=== PATIENT | female | born 1980 | race Hispanic/Latino ===

== ENCOUNTER 2018-05-08 10:38 | Observation (INO) | payer OTHER ==
[2018-05-07] MEDS: CEFTRIAXONE SOD 1 GM/NS 50 ML 50 ML IV SCH (22:15)
[~2018-05-08] VITALS: Ht 165.1 cm; Wt 100.7 kg
--- OUTSIDE RECORDS SUMMARY | 2018-05-08 10:41 | XMS REPORT ---
Author Author [facility] Address Unknown Phone Unavailable Care Team Providers Care Tile Trimmer Name Role Phone LAKE JUNG Unavailable Unavailable Problems This patient has no known problems. Allergies, Adverse Reactions, Alerts This patient has no known allergies or adverse reactions. Medications This patient has no known medications. Results Test Description Test Time Test Comments Text Results Atomic Results Result Comments U/S, ABDOMINAL, LIMITED 2017-11-06 14:51:00 Abdomen limited area? Add comment if clarification is needed.->Right upper quadrantReason for exam:->CHEST PAINpatient c/o mid chest wall and upper abdominal pain Reason for exam:->RUQ pain, cholelithiasis FINAL REPORT TECHNIQUE: Grayscale ultrasound of the right abdomen. INDICATION: 36-year-old woman with right upper quadrant pain. COMPARISON: None. FINDINGS: MIDLINE VASCULATURE: The visualized inferior vena cava is patent. Portal vein is patent. The maximum visualized aortic diameter is 1.9 cm. LIVER: The liver is normal in size. Increased echogenicity of the liver, consistent with hepatic steatosis. No focal lesions. BILIARY:Gallbladder: Shadowing cholelithiasis. No gallbladder wall thickening, pericholecystic fluid, or distention.Common bile duct measures 0.3 cm, within n ormal limits. No intrahepatic biliary ductal dilatation. PANCREAS: Visualized portions of the pancreas are unremarkable. PERITONEUM: No free fluid. RIGHT KIDNEY: Normal in size. No hydronephrosis. No sonographically evident solid mass lesion. IMPRESSION:Cholelithiasis without specific evidence of acute cholecystitis. Hepatic steatosis. Signed: Cassie Burns Verified Date/Time: 11/06/2017 14:51:14 Reading Location: [facility] Diagnostic Imaging Reading Room - [place] [address] TIC FUNCTION PANEL 2017-11-06 13:33:00 TOTAL PROTEIN (BEAKER) (test injl=366) 7.4 gm/dL 6.0-8.5 ALBUMIN (BEAKER) (test rylz=1803) 3.6 g/dL 3.5-5.0 BILIRUBIN TOTAL (BEAKER) (test phjm=898) 1.5 mg/dL 0.1-1.2 BILIRUBIN DIRECT (BEAKER) (test ncxr=287) 0.4 mg/dL 0.0-0.4 ALKALINE PHOSPHATASE (BEAKER) (test infz=610) 81 U/L 30-115 AST (SGOT) (BEAKER) (test pxby=207) 44 U/L 5-40 ALT (SGPT) (BEAKER) (test ujre=900) 34 U/L 5-50 [id number] 13:33:00* Test Item Value Reference Range Comments LIPASE (BEAKER) (test tpat=162) 84 U/L 40-240 BASIC METABOLIC [id number] 13:33:00* Test Item Value Reference Range Comments SODIUM (BEAKER) (test jtwi=421) 140 meq/L 135-148 POTASSIUM (BEAKER) (test harm=721) 3.8 meq/L 3.6-5.5 CHLORIDE (BEAKER) (test axev=215) 106 meq/L 98-106 CO2 (BEAKER) (test geeh=294) 27 meq/L 24-32 BLOOD UREA NITROGEN (BEAKER) (test hwvs=074) 10 mg/dL 10-26 CREATININE (BEAKER) (test iygc=104) 0.70 mg/dL 0.50-1.20 GLUCOSE RANDOM (BEAKER) (test bisw=000) 102 mg/dL 70-110 CALCIUM (BEAKER) (test plty=410) 8.6 mg/dL 8.5-10.5 EGFR (BEAKER) (test zmdd=7870) mL/min/1.73 sq m INSUFFICIENT CLINICAL DATA TO CALCULATE ESTIMATED GFR. CBC W/PLT COUNT & AUTO [id number] 13:28:00* Test Item Value Reference Range Comments WHITE BLOOD CELL COUNT (BEAKER) (test xled=636) 11.7 10e3/i? L 4.0-10.0 RED BLOOD CELL COUNT (BEAKER) (test ueey=263) 4.79 10e6/i? L 4.00-5.00 HEMOGLOBIN (BEAKER) (test oubl=495) 14.3 g/dL 12.0-15.0 HEMATOCRIT (BEAKER) (test wlac=709) 41.8 % 36.0-45.0 MEAN CORPUSCULAR VOLUME (BEAKER) (test btsj=636) 87.3 fL 82.0-99.0 MEAN CORPUSCULAR HEMOGLOBIN (BEAKER) (test jqsx=919) 29.7 pg 27.0-33.0 MEAN CORPUSCULAR HEMOGLOBIN CONC (BEAKER) (test czuo=284) 34.1 g/dL 32.0-36.0 RED CELL DISTRIBUTION WIDTH (BEAKER) (test gulr=487) 13.8 % 10.3-14.2 PLATELET COUNT (BEAKER) (test dmls=169) 308 10e3/i? L 150-430 MEAN PLATELET VOLUME (BEAKER) (test mblx=765) 8.5 fL 6.5-10.5 NEUTROPHILS RELATIVE PERCENT (BEAKER) (test qzts=479) 71 % LYMPHOCYTES RELATIVE PERCENT (BEAKER) (test pjpr=804) 18 % MONOCYTES RELATIVE PERCENT (BEAKER) (test khyw=080) 6 % EOSINOPHILS RELATIVE PERCENT (BEAKER) (test devp=618) 3 % BASOPHILS RELATIVE PERCENT (BEAKER) (test lwib=120) 1 % NEUTROPHILS ABSOLUTE COUNT (BEAKER) (test ltuk=633) 8.31 10e3/i? L 1.80-8.00 LYMPHOCYTES ABSOLUTE COUNT (BEAKER) (test pbcd=752) 2.15 10e3/i? L 1.48-4.50 MONOCYTES ABSOLUTE COUNT (BEAKER) (test kjam=608) 0.72 10e3/i? L 0.00-1.30 EOSINOPHILS ABSOLUTE COUNT (BEAKER) (test bggo=670) 0.37 10e3/i? L 0.00-0.50 BASOPHILS ABSOLUTE COUNT (BEAKER) (test esvd=299) 0.13 10e3/i? L 0.00-0.20
--- OUTSIDE RECORDS SUMMARY | 2018-05-08 10:41 | XMS REPORT | Clinical Summary ---
Author Author [facility] Address Unknown Phone Unavailable Care Team Providers Care Wine Pasteurizer Name Role Phone Pcp, No PCP Unavailable Allergies No Known Allergies Medications End Date Status Medication Sig Dispensed Refills Start Date Active lisinopril Take 20 mg by 0 (PRINIVIL,ZESTRIL) 20 MG mouth 2 (two) tablet times daily. 11/06/2018 Active dicyclomine (BENTYL) 20 Take 1 tablet 20 tablet 0 mg tablet (20 mg total) 8 by mouth 2 (two) times daily. 11/13/2017 ondansetron (ZOFRAN-ODT) Take 1 tablet 20 tablet 0 4 MG disintegrating (4 mg total) 8 tablet by mouth every 8 (eight) hours as needed for Nausea for up to 7 days. Active Problems Not on file Encounters Care Team Description Date Type Specialty Lake Jung MD Acute chest pain (Primary Dx); Nausea; RUQ abdominal pain; Calculus of gallbladder without cholecystitis without obstruction 11/06/2017 Emergency Emergency Medicine 11/06/2017 Orders Only General Internal Medicine after 05/07/2017 Social History Date Tobacco Use Types Packs/Day Years Used Never Smoker Smokeless Tobacco: Never Used Alcohol Use Drinks/Week oz/Week Comments Yes social Sex Assigned at Date Recorded Not on file Industry Job Start Date Occupation Not on file Not on file Not on file Travel End Travel History Travel Start No recent travel history available. Last Filed Vital Signs Time Taken Vital Sign Reading 11/06/2017 2:33 PM CDT Blood Pressure 149/89 11/06/2017 2:33 PM CDT Pulse 76 11/06/2017 12:36 PM CDT Temperature 36.7 C (98.1 F) 11/06/2017 2:33 PM CDT Respiratory Rate 16 11/06/2017 2:33 PM CDT Oxygen Saturation 99% - Inhaled Oxygen - Concentration 11/06/2017 12:36 PM CDT Weight 100.2 kg (221 lb) 11/06/2017 12:36 PM CDT Height 162.6 cm (5' 4") 11/06/2017 12:36 PM CDT Body Mass Index 37.93 Plan of Treatment Not on file Procedures Comments Procedure Name Priority Date/Time Associated Diagnosis ED ECG INTERPRETATION Routine 11/09/2017 4:38 PM CDT WI FAST ULTRASOUND - Routine 11/09/2017 LIMITED ABDOMINAL 4:38 PM CDT US ABDOMEN LIMITED STAT 11/06/2017 2:25 PM CDT CBC W/PLT COUNT & AUTO STAT 11/06/2017 DIFFERENTIAL 1:15 PM CDT LIPASE STAT 11/06/2017 1:15 PM CDT HEPATIC FUNCTION PANEL STAT 11/06/2017 1:15 PM CDT BASIC METABOLIC PANEL (7) STAT 11/06/2017 1:15 PM CDT CBC W/PLT COUNT & AUTO STAT 11/06/2017 DIFFERENTIAL 1:15 PM CDT ECG 12-LEAD Routine 11/06/2017 12:30 PM CDT after 05/07/2017 Results * ED ABDOMINAL ULTRASOUND (11/09/2017 4:38 PM CDT) Narrative Performed At Lake Jung MD 11/09/20174:38 PM Abd US Date/Time: 11/06/2017 12:40 PM Performed by: LAKE JUNG Authorized by: LAKE JUNG Consent: Verbal consent obtained. Risks and benefits: risks, benefits and alternatives were discussed Consent given by: patient Patient understanding: patient states understanding of the procedure being performed Patient identity confirmed: verbally with patient Time out: Immediately prior to procedure a "time out" was called to verify the correct patient, procedure, equipment, support specialist and site/side marked as required. Preparation: Patient was prepped and draped in the usual sterile fashion. Local anesthesia used: no Anesthesia: Local anesthesia used: no Sedation: Patient sedated: no Patient tolerance: Patient tolerated the procedure well with no immediate complications Immediate Post-Procedure Note Date/Time: 11/06/2017 4:37 PM Assistants to the procedure: None Pre-procedure diagnosis: RUq pain Post-procedure diagnosis: cholelithiasis Procedures Performed: Abd US Specimens removed: None Estimated blood loss (mL): None Complications: None Type of anesthesia: None Grafts or Implants: None Examiner:Attending Examiner attestation: I personally performed the procedure myself Indications:Abdominal pain Scope: limited--single quadrant or single abdominal organ Impression - Gallbladder:Gallstones, non obstructive, normal gallbladder wall, no mass and normal CBD Procedure Notes:Confirmatory study to be done in ED and images attached to the medical record * ED ECG Interpretation (11/09/2017 4:38 PM CDT) Narrative Performed At Lake Jung MD 11/09/20174:38 PM ECG/EKG Interpretation Date/Time: 11/06/2017 12:30 PM Performed by: LAKE JUNG Authorized by: LAKE JUNG The ECG was interpreted by ED physician. This ECG was not compared with previous ECG(s).There was no previous ECG available for comparison. The ECG is interpreted as sinus rhythm. Rate is normal rate. Heart rate is 88 BPM. Conduction: conduction normal. ST segments normal. T waves normal. [place] is normal. Other findings: no other findings. Clinical Impression: normal ECGECG reviewed and does not meet STEMI criteria. Patient tolerance: Patient tolerated the procedure well with no immediate complications * US abdomen limited (11/06/2017 2:25 PM CDT) Narrative Performed At FINAL REPORT [facility] TECHNIQUE: Grayscale ultrasound of the right abdomen. INDICATION: 36-year-old woman with right upper quadrant pain. COMPARISON: None. FINDINGS: MIDLINE VASCULATURE: The visualized inferior vena cava is patent. Portal vein is patent. The maximum visualized aortic diameter is 1.9 cm. LIVER: The liver is normal in size. Increased echogenicity of the liver, consistent with hepatic steatosis. No focal lesions. BILIARY: Gallbladder: Shadowing cholelithiasis. No gallbladder wall thickening, pericholecystic fluid, or distention. Common bile duct measures 0.3 cm, within normal limits. No intrahepatic biliary ductal dilatation. PANCREAS: Visualized portions of the pancreas are unremarkable. PERITONEUM: No free fluid. RIGHT KIDNEY: Normal in size. No hydronephrosis. No sonographically evident solid mass lesion. IMPRESSION: Cholelithiasis without specific evidence of acute cholecystitis. Hepatic steatosis. Signed: Mitzy Burns MD Report Verified Date/Time:11/06/2017 14:51:14 Reading Location: [facility] Diagnostic Imaging Reading Room - [place] [address] Procedure Note Interface, External Ris In - 11/06/2017 2:53 PM CDT FINAL REPORT TECHNIQUE: Grayscale ultrasound of the right abdomen. INDICATION: 36-year-old woman with right upper quadrant pain. COMPARISON: None. FINDINGS: MIDLINE VASCULATURE: The visualized inferior vena cava is patent. Portal vein is patent. The maximum visualized aortic diameter is 1.9 cm. LIVER: The liver is normal in size. Increased echogenicity of the liver, consistent with hepatic steatosis. No focal lesions. BILIARY: Gallbladder: Shadowing cholelithiasis. No gallbladder wall thickening, pericholecystic fluid, or distention. Common bile duct measures 0.3 cm, within normal limits. No intrahepatic biliary ductal dilatation. PANCREAS: Visualized portions of the pancreas are unremarkable. PERITONEUM: No free fluid. RIGHT KIDNEY: Normal in size. No hydronephrosis. No sonographically evident solid mass lesion. IMPRESSION: Cholelithiasis without specific evidence of acute cholecystitis. Hepatic steatosis. Signed: Mitzy Burns MD Report Verified Date/Time: 11/06/2017 14:51:14 Reading Location: [facility] Diagnostic Imaging Reading Room - [place] [address] Performing Organization Address City/State/Zipcode Phone Number RIS * CBC with platelet count + automated diff (11/06/2017 1:15 PM CDT) WBC 11.7 (H) 4.0 - 10.0 10e3/L [facility], [facility] [place], [place] [facility] RBC 4.79 4.00 - 5.00 10e6/L [facility], [facility] [place] Hemoglobin 14.3 12.0 - 15.0 g/dL [facility] [place] Hematocrit 41.8 36.0 - 45.0 % [facility] [place] MCV 87.3 82.0 - 99.0 fL [facility] [place] MCH 29.7 27.0 - 33.0 pg [facility] [place] MCHC 34.1 32.0 - 36.0 g/dL [facility] RDW 13.8 10.3 - 14.2 % [facility] [place] Platelets 308 150 - 430 10e3/L [facility] MPV 8.5 6.5 - 10.5 fL [facility] [place] % Neutros 71 % [facility] [place] % Lymphs 18 % [facility] [place] % Monos 6 % [facility] [place] % Eos 3 % [facility] [place] % Baso 1 % [facility] [place] # Neutros 8.31 (H) 1.80 - 8.00 10e3/L [facility] [place] # Lymphs 2.15 1.48 - 4.50 10e3/L [facility] [place] # Monos 0.72 0.00 - 1.30 10e3/L [facility] # Eos 0.37 0.00 - 0.50 10e3/L [facility], [facility] [place] # Baso 0.13 0.00 - 0.20 10e3/L [facility] [place] Specimen Blood - Arm, Left Performing Organization Address [facility]/[place] Phone Number [address] [phone] [facility], [facility] [place] * Lipase (11/06/2017 1:15 PM CDT) Lipase 84 40 - 240 U/L [facility], [place] Specimen Blood - Arm, Left Performing Organization Address [facility] Phone Number [address] [address] [phone] [place] [address] [facility] [place] * Hepatic function panel (11/06/2017 1:15 PM CDT) Protein, Total 7.4 6.0 - 8.5 gm/dL [facility], [facility] [place] Albumin 3.6 3.5 - 5.0 g/dL [facility] [place] Total Bilirubin 1.5 (H) 0.1 - 1.2 mg/dL [facility] [place] Bilirubin, Direct 0.4 0.0 - 0.4 mg/dL [facility], [facility] [place] Alkaline Phosphatase 81 30 - 115 U/L [facility], [facility], [facility] AST 44 (H) 5 - 40 U/L [facility] ALT 34 5 - 50 U/L [facility], [facility] [place] Specimen Blood - Arm, Left Performing Organization Address [facility]/[place] Phone Number [facility] [address] [place], [place] [phone] [facility], [facility] * Basic metabolic panel (Na, K+, Cl, CO2, Glu, Ca, BUN, Cr) (11/06/2017 1:15 PM CDT) Sodium 140 135 - 148 meq/L [facility], [facility], [facility] Potassium 3.8 3.6 - 5.5 meq/L [facility], [facility], [facility] Chloride 106 98 - 106 meq/L [facility] CO2 27 24 - 32 meq/L [facility] BUN 10 10 - 26 mg/dL [facility] Creatinine 0.70 0.50 - 1.20 mg/dL [facility], [facility], [facility] Glucose 102 70 - 110 mg/dL [facility] Calcium 8.6 8.5 - 10.5 mg/dL [facility], [facility] [place] EGFR Comment: INSUFFICIENT CLINICAL mL/min/1.73 sq m [facility] DATA TO CALCULATE ESTIMATED [facility] [place] Specimen Blood - Arm, Left Performing Organization Address [facility]/[place] Phone Number [facility] [address] [place] [address] [facility], [facility] * ECG 12 lead (11/06/2017 12:30 PM CDT) Narrative Performed At Ventricular Rate 88 BPM GE MUSE Atrial Rate 88 BPM P-R Interval 140 ms QRS Duration 80 ms Q-T Interval 386 ms QTC Calculation(Bazett) 467 ms P [place] 48 degrees R [place] 14 degrees T [place] 17 degrees Normal sinus rhythm Prolonged QT No previous ECGs available Confirmed by Dorothea RIVERA BASANT ([id number]) on 11/08/2017 9:42:17 AM Procedure Note Interface, External Ris In - 11/08/2017 9:42 AM CDT Ventricular Rate 88 BPM Atrial Rate 88 BPM P-R Interval 140 ms QRS Duration 80 ms Q-T Interval 386 ms QTC Calculation(Bazett) 467 ms P [place] 48 degrees R [place] 14 degrees T [place] 17 degrees Normal sinus rhythm Prolonged QT No previous ECGs available Confirmed by Dorothea RIVERA, ZACHARIAH ([id number]) on 11/08/2017 9:42:17 AM Performing Organization Address City/State/Zipcode Phone Number GE MUSE after 05/07/2017 Insurance Payer Benefit Subscriber ID Type Phone Address Plan / Group [employer] - MGD CARE C[employer] xxxxxxxxxxx HMO/POS [facility]
[2018-05-08] MEDS ORDERED: ONDANSETRON HCL INJ 2MG/ML 2ML 2 MG/ML VIAL IV STA (10:43)
[2018-05-08] MEDS ORDERED: MORPHINE SULFATE 5 MG/ML VIAL IV ONE (10:45)
[2018-05-08] MEDS ORDERED: MORPHINE SULFATE INJ 4 MG/ML INJ 1ML IV ONE (11:00)
[2018-05-08] MEDS ORDERED: PROMETHAZINE 12.5MG/ NACL 0.9% 12.5 MG/50 ML BAG IV ONE (11:15)
--- NOTE | 2018-05-08 11:50 | Diagnostic Imaging Report ---
EXAM: Right upper quadrant abdominal ultrasound INDICATION: Right upper quadrant pain COMPARISON: None. TECHNIQUE: Transverse and longitudinal images of the right upper quadrant abdomen were obtained FINDINGS: Liver: Size: Measures 14.7 cm in the right midclavicular line, normal Appearance: Increased echogenicity, smooth contour Mass: No focal masses Gallbladder: There are gallstones. Positive reported sonographic Guajardo's sign. No evidence of pericholecystic fluid, wall thickening, or reported sonographic Guajardo's sign. Gallbladder wall measures 0.2 cm. Bile Ducts: Intrahepatic Ducts: No dilatation Extrahepatic Ducts: Common bile duct measures 0.5 cm, no dilatation Pancreas: Visualized portions of the pancreatic head, neck and proximal body are normal. Kidney: The right kidney measures 10.7 cm without evidence of hydronephrosis or stone. Vessels: Aorta: Visualized portions are normal Inferior Vena Cava: Visualized portions are normal Main Portal Vein: 1.0 cm, normal size with hepatopetal flow. Free Fluid: No evidence of ascites. IMPRESSION: Cholelithiasis. Positive sonographic Guajardo's sign, however there is no evidence of gallbladder wall thickening or pericholecystic fluid. Findings are indeterminant by ultrasound, and could represent early cholecystitis in the appropriate clinical setting. Hepatic steatosis. Signed by: Dr. Todd Connell MD on 05/08/2018 11:47 AM
[2018-05-08] MEDS: SODIUM CHLORIDE 0.9% 1000ML 1,000 ML IV SCH ×3 (12:07→20:00)
[2018-05-08 13:30] LABS: CLARITY,URINE SL CLOUDY (CLEAR); COLOR,URINE YELLOW (YELLOW); PREGNANCY TEST, URINE NEGATIVE (NEGATIVE)
[2018-05-08 13:31] LABS: BILIRUBIN,URINE NEGATIVE (NEGATIVE); KETONES,URINE NEGATIVE (NEGATIVE); LEUKOCYTE ESTERASE ,URINE NEGATIVE (NEGATIVE); NITRITE,URINE NEGATIVE (NEGATIVE); PROTEIN,URINE DIPSTICK 3+ (NEGATIVE); URINE UROBILINOGEN 0.2 mg/dL (0.2 - 1)
[2018-05-08 13:43] LABS: BACTERIA,URINE MODERATE /HPF; EPITHELIAL CELLS,URINE MODERATE /LPF; RBC,URINE 0-5 /HPF (0-5)
[2018-05-08 13:52] LABS: BASOPHILS # (AUTO) 0.1 (0.0-0.1); BASOPHILS % 0.4 % (0.0-1.0); EOSINOPHILS % 0.1 % (0.0-6.0); HEMATOCRIT 40.6 % (34.2-44.1); HEMOGLOBIN 13.6 g/dL (12.0-16.0); LYMPHOCYTES # (AUTO) 1.2 (1.0-3.2); MEAN CORPUSCULAR HEMOGLOBIN 29.8 pg (28-32); MEAN CORPUSCULAR HGB CONC 33.5 g/dL (31-35); MEAN CORPUSCULAR VOLUME 88.8 fL (81-99); MONOCYTES # (AUTO) 0.7 (0.2-0.8); MONOCYTES % 3.9 % (4.4-11.3); PLATELET COUNT 311 x10e3/uL (140-360); RED BLOOD COUNT 4.57 x10e6/uL (3.6-5.1); RED CELL DISTRIBUTION WIDTH 13.7 % (11.7-14.4)
[2018-05-08] MEDS ORDERED: CEFTRIAXONE SOD 1 GM/NS 50 ML 50 ML IV ONE (14:00)
[2018-05-08 14:06] LABS: AMYLASE 37 U/L (25-125); LIPASE 16 U/L (8-78)
[2018-05-08 14:11] LABS: ALANINE AMINOTRANSFERASE 17 IU/L (0-55); ALBUMIN 3.7 g/dL (3.5-5.0); ALKALINE PHOSPHATASE 69 IU/L (40-150); ANION GAP 12.7 mmol/L (8-16); BLOOD UREA NITROGEN 9 mg/dL (7-26); BUN/CREATININE RATIO 11 (6-25); CALCIUM 8.8 mg/dL (8.4-10.2); CARBON DIOXIDE 24 mmol/L (22-29); CHLORIDE 103 mmol/L (98-107); CREATININE, SERUM 0.81 mg/dL (0.57-1.11); EST GLOMERULAR FILTRATION RATE > 60 ML/MIN (60-); GLUCOSE 109 mg/dL (74-118); POTASSIUM 3.7 mmol/L (3.5-5.1); SODIUM 136 mmol/L (136-145)
[2018-05-08] MEDS ORDERED: ONDANSETRON HCL INJ 2MG/ML 2ML 2 MG/ML VIAL IV ONE (14:15)
[2018-05-08] MEDS ORDERED: PROMETHAZINE 12.5MG/ NACL 0.9% 50 ML IV PRN (15:00)
[2018-05-08] MEDS ORDERED: PROMETHAZINE HCL (IM) 25 MG/ML VIAL IV PRN (15:00)
[2018-05-08] MEDS ORDERED: MORPHINE SULFATE 2 MG/ML SYR 1ML IV PRN (15:00)
[2018-05-08] MEDS ORDERED: HYDROMORPHONE 2MG/ML 2 MG/ML ML IV PRN (15:00)
[2018-05-08] MEDS ORDERED: HYDROMORPHONE 1MG/1ML INJ IV PRN (15:00)
[2018-05-08] MEDS ORDERED: ONDANSETRON HCL INJ 2MG/ML 2ML 2 MG/ML VIAL IV PRN (15:00)
[2018-05-08] MEDS ORDERED: MORPHINE SULFATE INJ 4 MG/ML INJ 1ML IV PRN (15:00)
--- OUTSIDE RECORDS SUMMARY | 2018-05-08 15:12 | XMS REPORT | Clinical Summary ---
Author Author RAUL [facility] Address Unknown Phone Unavailable Care Team Providers Care Dietitian Assistant Name Role Phone Pcp, No PCP Unavailable [...] ECG INTERPRETATION Routine 11/09/2017 4:38 PM CDT [place] FAST ULTRASOUND - Routine 11/09/2017 LIMITED ABDOMINAL [...] to verify the correct patient, procedure, equipment, windows support engineer and site/side marked as required. Preparation: Patient [...] normal. ST segments normal. T waves normal. Redfield is normal. Other findings: no other findings. Clinical Impression: normal ECGECG reviewed and does not meet STEMI criteria. Patient tolerance: Patient tolerated the procedure well with no immediate complications * US abdomen limited (11/06/2017 2:25 PM CDT) Narrative Performed At FINAL REPORT [employer] TECHNIQUE: Grayscale ultrasound of the right abdomen. [...] of acute cholecystitis. Hepatic steatosis. Signed: Mitzy Bruns MD Report Verified Date/Time:11/06/2017 14:51:14 Reading Location: [facility] Diagnostic Imaging Reading Room - [place] [address] Procedure Note Interface, External Ris In - [...] Report Verified Date/Time: 11/06/2017 14:51:14 Reading Location: [facility] Diagnostic Imaging Reading Room - [place] [id number] Performing Organization Address City/State/Zipcode Phone Number RIS * CBC with platelet count + automated diff (11/06/2017 1:15 PM CDT) WBC 11.7 (H) 4.0 - 10.0 10e3/L , [facility] RBC 4.79 4.00 - 5.00 10e6/L , [facility] Hemoglobin 14.3 12.0 - 15.0 g/dL [facility] Hematocrit 41.8 36.0 - 45.0 % [facility] MCV 87.3 82.0 - 99.0 fL [facility] MCH 29.7 27.0 - 33.0 pg [facility] MCHC 34.1 32.0 - 36.0 g/dL [facility] RDW 13.8 10.3 - 14.2 % [facility] Platelets 308 150 - 430 10e3/L [facility] MPV 8.5 6.5 - 10.5 fL [facility] % Neutros 71 % [facility] % Lymphs 18 % [facility] % Monos 6 % [facility] % Eos 3 % [facility] % Baso 1 % [facility] # Neutros 8.31 (H) 1.80 - 8.00 10e3/L [facility] # Lymphs 2.15 1.48 - 4.50 10e3/L [facility] # Monos 0.72 0.00 - 1.30 10e3/L [facility] # Eos 0.37 0.00 - 0.50 10e3/L , [facility] # Baso 0.13 0.00 - 0.20 10e3/L [facility] Specimen Blood - Arm, Left Performing Organization Address [facility] Phone Number [address] [phone] [facility] * Lipase (11/06/2017 1:15 PM CDT) Lipase 84 40 - 240 U/L [facility] Specimen Blood - Arm, Left Performing Organization Address [facility] Phone Number [address] [address] [phone] [place] [address] [facility] * Hepatic function panel (11/06/2017 1:15 PM CDT) Protein, Total 7.4 6.0 - 8.5 gm/dL , [facility] Albumin 3.6 3.5 - 5.0 g/dL [facility] Total Bilirubin 1.5 (H) 0.1 - 1.2 mg/dL [facility] Bilirubin, Direct 0.4 0.0 - 0.4 mg/dL , [facility] Alkaline Phosphatase 81 30 - 115 U/L , [facility] AST 44 (H) 5 - 40 U/L [facility] ALT 34 5 - 50 U/L , [facility] Specimen Blood - Arm, Left Performing Organization Address [facility] Phone Number [facility] [address] [place], [place] [phone] [facility] * Basic metabolic panel (Na, K+, Cl, CO2, Glu, Ca, BUN, Cr) (11/06/2017 1:15 PM CDT) Sodium 140 135 - 148 meq/L , [facility] Potassium 3.8 3.6 - 5.5 meq/L , [facility] Chloride 106 98 - 106 meq/L [facility] CO2 27 24 - 32 meq/L [facility] BUN 10 10 - 26 mg/dL [facility] Creatinine 0.70 0.50 - 1.20 mg/dL , [facility] Glucose 102 70 - 110 mg/dL [facility] Calcium 8.6 8.5 - 10.5 mg/dL , [facility] EGFR Comment: INSUFFICIENT CLINICAL mL/min/1.73 sq m [facility] DATA TO CALCULATE ESTIMATED [facility] GFR. [facility] Specimen Blood - Arm, Left Performing Organization Address [facility] Phone Number [facility] [address] [place] [address] [facility] * ECG 12 lead (11/06/2017 12:30 PM CDT) Narrative Performed At Ventricular Rate 88 BPM GE MUSE Atrial Rate 88 BPM P-R Interval 140 ms QRS Duration 80 ms Q-T Interval 386 ms QTC Calculation(Bazett) 467 ms P Redfield 48 degrees R Redfield 14 degrees T Redfield 17 degrees Normal sinus rhythm Prolonged QT No previous ECGs available Confirmed by Dorothea RIVERA BASANT ([id number]) on 11/08/2017 9:42:17 AM Procedure Note Interface, External Ris In - 11/08/2017 9:42 AM CDT Ventricular Rate 88 BPM Atrial Rate 88 BPM P-R Interval 140 ms QRS Duration 80 ms Q-T Interval 386 ms QTC Calculation(Bazett) 467 ms P Redfield 48 degrees R Redfield 14 degrees T Redfield 17 degrees Normal sinus rhythm Prolonged QT No previous ECGs available Confirmed by Dorothea RIVERA, ZACHARIAH ([id number]) on 11/08/2017 9:42:17 AM Performing Organization Address City/State/Zipcode Phone Number GE MUSE after 05/07/2017 Insurance Payer Benefit Subscriber ID Type Phone Address Plan / Group [employer] - MGD CARE [employer] xxxxxxxxxxx HMO/POS [facility]
[2018-05-08] MEDS ORDERED: BUPIVACAINE HCL 0.5% INJ 30 ML VIAL INJ ONE (16:34)
[2018-05-08] MEDS ORDERED: SEVOFLURANE INHAL SOLN 250 ML PEN BTL ONE (17:42)
[2018-05-08] MEDS ORDERED: ONDANSETRON HCL INJ 2MG/ML 2ML 2 MG/ML VIAL ONE (17:42)
[2018-05-08] MEDS ORDERED: PROPOFOL IV EMULSION 10 MG/ML 20 ML VIAL ONE (17:42)
[2018-05-08] MEDS ORDERED: ATROPINE SULFATE 1 MG/ML VIAL ONE (17:42)
[2018-05-08] MEDS ORDERED: DEXAMETHASONE SOD PHOS INJ 4 MG/ML VIAL ONE (17:42)
[2018-05-08] MEDS ORDERED: ROCURONIUM BROMIDE 10 MG/ML 5ML VIAL ONE (17:42)
[2018-05-08] MEDS ORDERED: CEFOXITIN SOD 1 GM VIAL ONE (17:42)
[2018-05-08] MEDS ORDERED: LIDOCAINE HCL 2% LOCAL INJ 5 ML SDV VIAL INJ ONE (17:42)
[2018-05-08] MEDS ORDERED: NEOSTIGMINE 5 MG/5ML SYR ONE (17:42)
[2018-05-08] MEDS ORDERED: MIDAZOLAM HCL 2 MG/2 ML VIAL ONE (17:48)
[2018-05-08] MEDS ORDERED: FENTANYL CITRATE/PF 100MCG/2 ML INJ ONE ×2 (17:48→19:02)
[2018-05-08] MEDS ORDERED: KETAMINE HCL INJ 50 MG/ML 10 ML VIAL ONE (17:48)
[2018-05-08] MEDS ORDERED: MEPERIDINE HCL INJ 25 MG/ML VIAL ONE (19:02)
[2018-05-08 19:56] VITALS: BP 139/81
[2018-05-08 20:00] VITALS: BP 139/81
--- NOTE | 2018-05-08 20:00 | NUR ---
RECEIVED PATIENT AAOX3 FROM PACU. X4 TROCAR SITES C/D/I, OTHERWISE SKIN INTACT. PAIN 05/19, BUT "TOLERABLE". BILAT SCDS. RESPIRATIONS EVEN AND UNLABORED. 2L/NC. RIGHT AC 20G WITH NS @125ML/HR, LEFT AC 18G FLUSHED AND SALINE LOCKED. NO NEEDS VOICED AT THIS TIME. BED LOCKED AND IN LOWEST POSITION, CALL LIGHT WITHIN REACH. FAMILY MEMBERS AT BEDSIDE. CONTINUE TO MONITOR.
--- NOTE | 2018-05-08 23:54 | Consultation ---
DATE OF CONSULTATION: 05/08/2018 CHIEF COMPLAINT: Abdominal pain. HISTORY OF PRESENT ILLNESS: The patient is a 37-year-old female with one-day history of epigastric right upper quadrant abdominal pain radiating to the back with nausea and vomiting. She had previous attack last summer. The patient states she has gallstone. PAST MEDICAL HISTORY: Significant for hypertension and hyperlipidemia. PAST SURGICAL HISTORY: Positive for wrist surgery and D and C. ALLERGIES: THE PATIENT IS ALLERGIC TO NO DRUGS. SOCIAL HISTORY: No smoking or alcohol abuse. REVIEW OF SYSTEMS: No cough, chest pain, or shortness of breath. PHYSICAL EXAMINATION: VITAL SIGNS: Stable. Afebrile. GENERAL: She is awake and alert in moderate discomfort. HEENT: Sclerae anicteric. NECK: Supple. LUNGS: Clear. HEART: Regular rate and rhythm. ABDOMEN: Soft with guarding tenderness and rebound in the right upper quadrant. EXTREMITIES: Without cyanosis or edema. LABORATORY DATA: White cell count is 17, hemoglobin of 14. Creatinine of 0.8. Liver function tests within normal limits. Ultrasound of the gallbladder showed multiple gallstones with positive Guajardo sign. ASSESSMENT: Cholecystitis and cholelithiasis. PLAN: Laparoscopic cholecystectomy, attendant risks discussed. Parveen Delgadillo MD DNMaude/MODL /[id number]
[2018-05-09] VITALS: BP 132/75
--- NOTE | 2018-05-09 01:50 | Operative Report ---
DATE OF PROCEDURE: 05/08/2018 SURGEON: Parveen Delgadillo MD PREOPERATIVE DIAGNOSIS: Cholecystitis. POSTOPERATIVE DIAGNOSES: Cholecystitis and cholelithiasis. OPERATIVE PROCEDURE: Laparoscopic cholecystectomy. INSPECTOR PRINTED CIRCUIT BOARDS: None. ANESTHESIA: General endotracheal, Dr. Aguilar. INDICATIONS: A 37-year-old female with history of recurrent epigastric pain, gallstones seen on ultrasound of the gallbladder. The patient had consented for laparoscopic cholecystectomy and attendant risks were discussed. PROCEDURE FINDINGS: Acute cholecystitis with stones in the neck of the gallbladder. DESCRIPTION OF PROCEDURE: The patient was brought to the OR, intubated. Abdomen was prepped with alcohol and draped in sterile fashion. Infraumbilical incision was made. A 10 mm port was inserted. Insufflation then began. Under direct vision, another port site was placed in the mid epigastric and right upper quadrant. Gallbladder was acutely inflamed and distended. It was decompressed with a needle. We then proceeded to retract the fundus in the cephalad direction, and neck of the gallbladder retracted laterally with blunt and sharp dissection. The cystic artery was isolated, triple clipped, and divided. The cystic duct was also isolated and triple clipped approximately 5 mm away from the junction, and the cystic duct divided between the clips. Gallbladder was detached from the liver with cautery and taken out through umbilical incision. Operative field was irrigated. Hemostasis was achieved. All ports were removed under direct vision. Fascial closure with #0 Vicryl. Skin was closed with subcuticular stitch. The patient was extubated, transported to the recovery room. ESTIMATED BLOOD LOSS: 10 mL. Parveen Delgadillo MD DNL/MODL /[id number]
[2018-05-09] MEDS ORDERED: LISINOPRIL10 MG PO (02:18)
--- NOTE | 2018-05-09 02:20 | Consultation ---
DATE OF CONSULTATION: Consultation Note REASON FOR CONSULTATION: Concerned about cholecystitis, recommendation of antibiotic. HISTORY OF PRESENT ILLNESS: This patient, who is a 37-year-old female, comes in with complaining of fever, chills, right upper quadrant discomfort, and pain. The patient comes into the emergency room because she not doing well. In the emergency room, she was evaluated. Her white count was 17.06, hemoglobin of 13.6, and hematocrit of 40. Her sodium was 136 and potassium 3.7. Liver enzyme within normal limit. Her UA was positive for bacteria. By the time I came to see the patient, the patient has already been taken to the OR for cholecystectomy. PAST MEDICAL HISTORY: She denies. PAST SURGICAL HISTORY: She denies. ALLERGIES: NKA. SOCIAL HISTORY: No smoking, drug abuse, or alcohol abuse. FAMILY HISTORY: Unremarkable. REVIEW OF SYSTEMS: HEENT: Negative. PULMONARY: Negative. CARDIAC: Negative. : Negative. GI: As above. She does have some discomfort in the right upper quadrant as well as some nausea. PHYSICAL EXAMINATION: GENERAL: She is currently alert, oriented, and does not seem to be in acute distress. VITAL SIGNS: Stable. Currently afebrile. HEENT: She is not icteric. NECK: Supple. CHEST: Clear. HEART: S1 and S2 normal. ABDOMEN: Soft. She does have some right upper quadrant discomfort. IMPRESSION: Abdominal pain, could be urinary tract infection versus cholecystitis. PLAN: She is on her way to cholecystectomy. Agree with Rocephin 2 g q.24 hours. Await blood cultures and urine cultures. We will reassess again in the morning. MD DENNISE Mdidleton/FABIÁN /[id number]
[2018-05-09 04:00] VITALS: BP 123/72
[2018-05-09] MEDS: SODIUM CHLORIDE 0.9% 1000ML 1,000 ML IV SCH ×2 (05:41→14:33)
[2018-05-09 06:11] LABS: BASOPHILS % 0.2 % (0.0-1.0); EOSINOPHILS % 0.1 % (0.0-6.0); HEMATOCRIT 38.8 % (34.2-44.1); HEMOGLOBIN 12.9 g/dL (12.0-16.0); LYMPHOCYTES # (AUTO) 1.6 (1.0-3.2); MEAN CORPUSCULAR HGB CONC 33.2 g/dL (31-35); MEAN CORPUSCULAR VOLUME 90.2 fL (81-99); MONOCYTES # (AUTO) 0.9 (0.2-0.8); MONOCYTES % 5.2 % (4.4-11.3); NEUTROPHILS # (AUTO) 13.8 (2.1-6.9); NEUTROPHILS % 83.8 % (38.7-80.0); PLATELET COUNT 295 x10e3/uL (140-360); RED CELL DISTRIBUTION WIDTH 13.9 % (11.7-14.4)
[2018-05-09 06:50] LABS: ALANINE AMINOTRANSFERASE 19 IU/L (0-55); ALBUMIN/GLOBULIN RATIO 0.8 (0.8-2.0); ALKALINE PHOSPHATASE 56 IU/L (40-150); ANION GAP 9.7 mmol/L (8-16); BLOOD UREA NITROGEN 9 mg/dL (7-26); BUN/CREATININE RATIO 12 (6-25); CALCIUM 8.2 mg/dL (8.4-10.2); CARBON DIOXIDE 22 mmol/L (22-29); CHLORIDE 107 mmol/L (98-107); CREATININE, SERUM 0.74 mg/dL (0.57-1.11); EST GLOMERULAR FILTRATION RATE > 60 ML/MIN (60-); GLUCOSE 115 mg/dL (74-118); POTASSIUM 3.7 mmol/L (3.5-5.1); SODIUM 135 mmol/L (136-145)
--- NOTE | 2018-05-09 07:24 | NUR ---
Rcvd patient in report this am. Patient is asleep in bed at this time. No s/s of distress noted. NO c/o pain
[2018-05-09 07:53] VITALS: BP 120/74
[2018-05-09] MEDS: CEFTRIAXONE SOD 1 GM/NS 50 ML 50 ML IV SCH (08:19)
[2018-05-09] MEDS ORDERED: ACETAMINOPHEN/CODEINE 300MG - 30MG TAB PO PRN (09:15)
[2018-05-09 10:39] VITALS: BP 120/74
[2018-05-09 11:42] VITALS: BP 135/72
[2018-05-09] MEDS ORDERED: TYLENOL WITH C1 EACH PO (12:51)
[2018-05-09] MEDS ORDERED: LEVAQUIN500 MG PO (12:51)
[2018-05-09] MEDS ORDERED: FLAGYL250 MG PO (12:54)
[2018-05-09] MEDS ORDERED: ACETAMINOPHEN/CODEINE 300MG - 30MG TAB ONE (13:09)
[2018-05-09] MEDS: ACETAMINOPHEN/CODEINE 300MG - 30MG TAB PO PRN ×2 (13:09→16:42)
--- NOTE | 2018-05-09 15:07 | NUR ---
DISCHARGE INSTRUCTIONS AND PRESCRIPTIONS GIVEN. PT VERBALIZED UNDERSTANDING. RIGHT AC IV D/C AND PRESSURE DRESSING APPLIED.
--- NOTE | 2018-05-11 14:07 | Discharge Summary ---
PRIMARY CARE PHYSICIAN: Dr. Thompson [facility]. FINAL DIAGNOSIS: Acute cholecystitis. SECONDARY DIAGNOSIS: Hypertension. CONSULTANTS: 1. Dr. Delgadillo, General Surgery. 2. Dr. Smith, Infectious Disease. PROCEDURES/STUDIES PERFORMED: 1. Abdominal ultrasound. 2. Laparoscopic cholecystectomy. HISTORY: Per H and P. HOSPITAL COURSE: The patient received IV Rocephin. The patient underwent unremarkable laparoscopic cholecystectomy. At the time of discharge, the patient was tolerating p.o. The patient will follow up with Dr. Delgadillo in one week. The patient was provided with Tylenol No. 3 for pain control. The patient was given Levaquin and Flagyl at the time of discharge per contaminated land consultant. CONDITION ON DISCHARGE: Improved. DISCHARGE MEDICATIONS: Please see medication reconciliation form. MD CAM Irby/FABIÁN /[id number]
== END 2018-05-09 16:49 | disposition home or self-care (01) ==
LOC: ER 10:38 → ERHOLD 14:50 → MED/SURG 19:42
PROVIDERS: ADMIT Internal Medicine; ATTEND Internal Medicine
DX: K80.00 Calculus of gallbladder with acute cholecystitis without obstruction (principal); I10 Essential (primary) hypertension; E78.5 Hyperlipidemia, unspecified
CPT/HCPCS: 36415 ×2; 47562; 76705; 80053 ×2; 81001; 81025; 82150; 83605; 83690; 85025 ×2; 88304; 99284; G0378 ×2; J0461; J0694; J0696 ×2; J1100; J2001; J2175; J2250; J2270 ×2; J2405; J2550; J2704; J7030 ×2